=== PATIENT | male | born 1930 | race African-American/Black ===

== ENCOUNTER 2017-05-26 13:36 | Inpatient (IN) | payer MEDICARE ==
[~2017-05-26] VITALS: Ht 182.9 cm; Wt 64.4 kg
[~2017-05-26 13:36] MED LIST: ACET325T9 GT; ACET325T9 PO; AMLO10TA4 PO; ASPI-630 GT; ATOR10TA60 GT; ATOR10TA60 PO; CLOP75TA57 GT; CYAN10005 GT; DONE10TA61 PO; ERGO500027 PO; HYDR-2869 GT; LEVE500T56 GT; LORA10TA3 PO; LOSA50TA2 GT; MAGN2400 GT; METO25TA4 PO; PANT40GR PO; POTASSIUM CHLO10 MEQ PO; SERT25TA PO; VALS80TA3 PO; VERA240C2 PO
--- NOTE | 2017-05-26 15:04 | PHYS DOC ---
Past Medical History Past Medical History: Anxiety, CVA, Dementia, GERD, High Cholesterol, Hypertension, Renal Disease, Seizure, Other Additional Past Medical Histor: Aphasia, Vit B Def., Vit D Def., Chronic Kidney Ds, Psychosis Past Surgical History: Other Additional Past Surgical Histo: G-TUBE PLACEMENT X 2 WEEKS AGO Alcohol Use: None Drug Use: None Adult General Chief Complaint Chief Complaint: ABDOMINAL PAIN HPI HPI Patient is a 87 year old male who presents with and a history of abdominal distention and recently had a G-tube replaced; no vomiting or diarrhea reported. Patient is nonverbal after a stroke bed ridden without complaints and no response to abdominal palpation as far as pain goes. Patient is incontinent of urine at baseline uses diapers. History, review of systems, and physical exam are limited by patient's nonverbal status. Recent admission for hypernatremia failure to thrive and PEG tube placement [address] Almeida Review of Systems Review of Systems Constitutional: Denies fever or chills [] Eyes: Denies change in visual acuity, redness, or eye pain [] HENT: Denies nasal congestion or sore throat [] Respiratory: Denies cough or shortness of breath [] Cardiovascular: No additional information not addressed in HPI [] GI: Denies abdominal pain, nausea, vomiting, bloody stools or diarrhea [] : Denies dysuria or hematuria [] Musculoskeletal: Denies back pain or joint pain [] Integument: Denies rash or skin lesions [] Neurologic: Denies headache, focal weakness or sensory changes [] Endocrine: Denies polyuria or polydipsia [] All other systems were reviewed and found to be within normal limits, except as documented in this note. Current Medications Current Medications Current Medications Medications (Trade) Dose Ordered Sig/Kimo Start Time Stop Time Status Last Admin Dose Admin Iohexol (Omnipaque 300 Mg/ml) 75 ml 1X ONCE 05/26/17 15:15 05/26/17 15:17 DC 05/26/17 16:27 75 ML Morphine Sulfate 2 mg PRN Q2HR PRN 05/26/17 18:15 05/27/17 18:14 Ondansetron HCl (Zofran) 4 mg PRN Q8HRS PRN 05/26/17 18:15 05/27/17 18:14 Potassium Chloride (KCl Oral Soln) 40 meq 1X ONCE 05/26/17 17:30 05/26/17 17:31 DC 05/26/17 17:40 40 MEQ Sodium Chloride 1,000 ml @ 0 mls/hr 1X ONCE 05/26/17 18:45 05/26/17 18:46 DC 05/26/17 18:45 1,000 MLS/HR Allergies Allergies Allergies Coded Allergies Type Severity Reaction Last Updated Verified No Known Drug Allergies 06/25/15 No Physical Exam Physical Exam Constitutional: Well developed, well nourished, no acute distress, non-toxic appearance. [] HENT: Normocephalic, atraumatic, bilateral external ears normal, oropharynx moist, no oral exudates, nose normal. [] Eyes: PERRLA, EOMI, conjunctiva normal, no discharge. [] Neck: Normal range of motion, no tenderness, supple, no stridor. [] Cardiovascular:Heart rate regular rhythm, no murmur [] Lungs & Thorax: Bilateral breath sounds clear to auscultation [] Abdomen: Bowel sounds normal, soft, no tenderness, no masses, no pulsatile masses. marked distention[] Skin: Warm, dry, no erythema, no rash. [] Back: No tenderness, no CVA tenderness. [] Extremities: No tenderness, no cyanosis, no clubbing, ROM intact, no edema. [] Neurologic: Alert , no focal deficits noted. [] Psychologic: quiet in bed. [] Current Patient Data Vital Signs Vital Signs Date Time Temp Pulse Resp B/P (MAP) Pulse Ox O2 Delivery O2 Flow Rate FiO2 05/26/17 19:30 74 147/72 (97) 93 Room Air 05/26/17 13:48 98.0 18 98.0 Lab Values Laboratory Tests Test 05/26/17 15:00 05/26/17 15:20 Urine Collection Type Unknown Urine Color Yellow Urine Clarity Clear Urine pH 6.5 Urine Specific [place] 1.025 Urine Protein 30 mg/dL (NEG-TRACE) Urine Glucose (UA) Negative mg/dL (NEG) Urine Ketones (Stick) Negative mg/dL (NEG) Urine Blood Negative (NEG) Urine Nitrite Negative (NEG) Urine Bilirubin Negative (NEG) Urine Urobilinogen Dipstick 1.0 mg/dL (0.2 mg/dL) Urine Leukocyte Esterase Small (NEG) Urine RBC 0 /HPF (0-2) Urine WBC 5-10 /HPF (0-4) Urine Squamous Epithelial Cells Few /LPF Urine Bacteria Few /HPF (0-FEW) Urine Mucus Slight /LPF Urine Yeast Present /HPF White Blood Count 6.8 x10^3/uL (4.0-11.0) Red Blood Count 4.42 x10^6/uL (4.30-5.70) Hemoglobin 11.1 g/dL (13.0-17.5) L Hematocrit 35.5 % (39.0-53.0) L Mean Corpuscular Volume 80 fL (79-100) Mean Corpuscular Hemoglobin 25 pg (25-35) Mean Corpuscular Hemoglobin Concent 31 g/dL (31-37) Red Cell Distribution Width 18.0 % (11.5-14.5) H Platelet Count 223 x10^3/uL (140-400) Neutrophils (%) (Auto) 37 % (31-73) Lymphocytes (%) (Auto) 29 % (24-48) Monocytes (%) (Auto) 14 % (0-9) H Eosinophils (%) (Auto) 19 % (0-3) H Basophils (%) (Auto) 1 % (0-3) Neutrophils # (Auto) 2.5 x10^3uL (1.8-7.7) Lymphocytes # (Auto) 2.0 x10^3/uL (1.0-4.8) Monocytes # (Auto) 1.0 x10^3/uL (0.0-1.1) Eosinophils # (Auto) 1.3 x10^3/uL (0.0-0.7) H Basophils # (Auto) 0.1 x10^3/uL (0.0-0.2) Segmented Neutrophils % 42 % (35-66) Band Neutrophils % 1 % (0-9) Lymphocytes % 27 % (24-48) Monocytes % 11 % (0-10) H Eosinophils % 18 % (0-5) H Metamyelocytes % 1 % (0-0) H Platelet Estimate Adequate (ADEQUATE) Large Platelets Occ Polychromasia Slight Ovalocytes Occ Stomatocytes Occ Prothrombin Time 13.3 SEC (11.7-14.0) Prothrombin Time INR 1.1 (0.8-1.1) Sodium Level 146 mmol/L (136-145) H Potassium Level 2.6 mmol/L (3.5-5.1) *L Chloride Level 106 mmol/L (98-107) Carbon Dioxide Level 35 mmol/L (21-32) H Anion Gap 5 (6-14) L Blood Urea Nitrogen 13 mg/dL (8-26) Creatinine 0.8 mg/dL (0.7-1.3) Estimated GFR (Cockcroft-Gault) 110.4 BUN/Creatinine Ratio 16 (6-20) Glucose Level 93 mg/dL (70-99) Calcium Level 8.3 mg/dL (8.5-10.1) L Total Bilirubin 0.4 mg/dL (0.2-1.0) Aspartate Amino Transferase (AST) 19 U/L (15-37) Alanine Aminotransferase (ALT) 10 U/L (16-63) L Alkaline Phosphatase 54 U/L (46-116) Total Protein 6.6 g/dL (6.4-8.2) Albumin 2.1 g/dL (3.4-5.0) L Albumin/Globulin Ratio 0.5 (1.0-1.7) L Lipase 49 U/L (73-393) L Laboratory Tests 05/26/17 15:20 Laboratory Tests 05/26/17 15:20 EKG EKG [] Radiology/Procedures Radiology/Procedures CT scan abdomen and pelvis shows 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 (See chart for details) [Labs showed hypokalemia and we did order an enema. Discussed case with Dr. Almeida as the patient needs to be admitted for enemas and decompression of colon Discussed case with Dr. Almeida he agrees to admit the patient] Dragon Disclaimer Dragon Disclaimer This electronic medical record was generated, in whole or in part, using a voice recognition dictation system. Departure Departure Impression: Primary Impression: Cary's syndrome Additional Impressions: Hypokalemia Hypernatremia Disposition: ADMITTED INPATIENT Admitting Physician: Ann Almeida Condition: STABLE Referrals: ELI STALLINGS (PCP) Problem Qualifiers LAURA BLOCK MD May 26, 2017 15:04
[2017-05-26 15:11] LABS: BILIRUBIN,URINE NEGATIVE (NEG); GLUCOSE,URINE NEGATIVE (NEG); NITRITE,URINE NEGATIVE (NEG); PH,URINE 6.5; PROTEIN,URINE 30 mg/dL (NEG-TRACE)
[2017-05-26] MEDS ORDERED: IOHEXOL 300 MG/ML 100ML VIAL. IV ONE (15:15)
[2017-05-26 15:29] LABS: BASO # 0.1 x10^3/uL (0.0-0.2); BASO % 1 % (0-3); EOS % 19 % (0-3); HEMATOCRIT 35.5 % (39.0-53.0); HEMOGLOBIN 11.1 g/dL (13.0-17.5); LYMPH % 29 % (24-48); MEAN CORPUSCULAR HEMOGLOBIN 25 pg (25-35); MEAN CORPUSCULAR HGB CONC 31 g/dL (31-37); MEAN CORPUSCULAR VOLUME 80 fL (79-100); MONO % 14 % (0-9); NEUT % 37 % (31-73); PLATELET COUNT 223 x10^3/uL (140-400); RED BLOOD COUNT 4.42 x10^6/uL (4.30-5.70); WHITE BLOOD COUNT 6.8 x10^3/uL (4.0-11.0)
[2017-05-26 15:51] LABS: BACTERIA,URINE FEW /HPF (0-FEW); RBC,URINE 0 /HPF (0-2); SQUAMOUS EPITHELIAL CELL,UR FEW /LPF; YEAST,URINE PRESENT /HPF
[2017-05-26 15:55] LABS: ALBUMIN 2.1 g/dL (3.4-5.0); ALBUMIN/GLOBULIN RATIO 0.5 (1.0-1.7); CALCIUM 8.3 mg/dL (8.5-10.1); CREATININE 0.8 mg/dL (0.7-1.3); GFR 110.4; TOTAL BILIRUBIN 0.4 mg/dL (0.2-1.0); TOTAL PROTEIN 6.6 g/dL (6.4-8.2)
[2017-05-26 15:58] LABS: POTASSIUM 2.6 mmol/L (3.5-5.1)
[2017-05-26 16:09] LABS: INR 1.1 (0.8-1.1); PROTHROMBIN TIME PATIENT 13.3 SEC (11.7-14.0)
--- NOTE | 2017-05-26 16:58 | RAD ---
CT abdomen and pelvis with contrast 05/26/2017 Clinical indication: Diffuse abdominal distention. Comparison: Abdominal radiograph 04/17/2015 Technique: Multiple CT images of the abdomen and pelvis were obtained following the intravenous administration of 75 mL Omnipaque 300. PQRS Compliance Statement: One or more of the following individualized dose reduction techniques were utilized for this examination: 1. Automated exposure control 2. Adjustment of the mA and/or kV according to patient size 3. Use of iterative reconstruction technique Findings: Abdomen and pelvis: Examination of the upper abdomen is limited due to scan technique with adjacent artifact from hands being at the side. Heart size is normal without significant pericardial effusion. There are trace bilateral pleural effusions and patchy bibasilar consolidation. There is a punctate 3 mm hypodensity in hepatic segment 7 series 2/image 23 which is too small to definitely characterize. Gallbladder unremarkable. Spleen normal in size with punctate calcified granulomas. Adrenal glands and pancreas are grossly unremarkable. There are a few nonobstructive left renal calculi with the largest in the inferior pole the left kidney measuring 0.9 cm. There is a small inferior pole left renal cyst. No hydronephrosis. Abdominal aorta is normal in caliber with moderate aortoiliac calcified atheromatous disease. Major portal, splenic and visualized superior mesenteric veins are patent. There is an infrarenal IVC filter. There is a percutaneous gastrostomy tube in place. There is marked colonic distention diffusely throughout the large bowel to the level of the rectum with no high-grade transition point. Small bowel loops are normal in caliber. There is layering high density and fluid in the distal sigmoid colon and rectum, and may be due to recent enema. No pneumatosis or pneumoperitoneum. There are multifocal mild compression deformities from T12 through L3 no evidence of bony retropulsion. No destructive osseous lesions. Impression: 1. Marked prominent gaseous dilatation throughout the large bowel to the level of the rectum with no high-grade transition point. Findings are most suggestive of colonic ileus. Progress radiographs to completion are recommended. 2. No pneumatosis or pneumoperitoneum. 3. No small bowel obstruction. 4. Nonobstructive left nephrolithiasis. 5. Trace bilateral pleural effusions. 6. Patchy bibasilar consolidation which may represent aspiration or infection.
[2017-05-26] MEDS ORDERED: POTASSIUM CHLORIDE 20 MEQ/15 ML ORAL LIQUID. PEG ONE (17:30)
[2017-05-26 17:56] LABS: % EOS 18 % (0-5); PLT ESTIMATE ADEQUATE (ADEQUATE)
[2017-05-26 17:57] LABS: OVALOCYTES OCC; POLYCHROMASIA SLIGHT; STOMATOCYTES OCC
[2017-05-26] MEDS ORDERED: MORPHINE SULFATE 2 MG/ML DISP.SYRIN. IV PRN (18:15)
[2017-05-26] MEDS ORDERED: ONDANSETRON PF 4 MG/2 ML VIAL. IV PRN (18:15)
[2017-05-26] MEDS ORDERED: IV NORMAL SALINE 1000ML BAG 1,000 ML IV ONE (18:45)
[2017-05-26 21:00] VITALS: BP 165/85
[2017-05-26] MEDS ORDERED: CEFA1PIG IV (23:11)
[2017-05-26] MEDS ORDERED: LANSOPRAZOLE GT (23:11)
[2017-05-26] MEDS ORDERED: POTA20LI27 PEG (23:13)
[2017-05-26 23:38] VITALS: BP 141/70
[2017-05-27] VITALS (12 sets, daily range): BP systolic 124–153; BP diastolic 51–85
[2017-05-27 04:50] LABS: BASO # 0.1 x10^3/uL (0.0-0.2); BASO % 1 % (0-3); EOS % 18 % (0-3); HEMATOCRIT 30.7 % (39.0-53.0); HEMOGLOBIN 9.7 g/dL (13.0-17.5); LYMPH % 34 % (24-48); MEAN CORPUSCULAR HEMOGLOBIN 25 pg (25-35); MEAN CORPUSCULAR HGB CONC 32 g/dL (31-37); MEAN CORPUSCULAR VOLUME 80 fL (79-100); MONO % 14 % (0-9); NEUT % 33 % (31-73); PLATELET COUNT 211 x10^3/uL (140-400); RED BLOOD COUNT 3.84 x10^6/uL (4.30-5.70); RED CELL DISTRIBUTION WIDTH 17.9 % (11.5-14.5)
[2017-05-27 05:11] LABS: ALBUMIN 1.9 g/dL (3.4-5.0); ALBUMIN/GLOBULIN RATIO 0.5 (1.0-1.7); CREATININE 0.7 mg/dL (0.7-1.3); GFR 128.8; TOTAL BILIRUBIN 0.4 mg/dL (0.2-1.0)
[2017-05-27 05:12] LABS: POTASSIUM 2.4 mmol/L (3.5-5.1)
[2017-05-27] MEDS ORDERED: POTASSIUM CHLORIDE 20 MEQ/15 ML ORAL LIQUID. PEG ONE (06:00)
[2017-05-27] MEDS: DEXTROSE 5% IV SCH ×4 (06:03→13:20)
[2017-05-27] MEDS: POTASSIUM CHLORIDE IV SCH ×4 (06:03→13:20)
[2017-05-27] MEDS ORDERED: POTASSIUM CHLORIDE 10 MEQ in IV NORMAL SALINE 100ML 100 ML IV SCH (07:00)
[2017-05-27] MEDS ORDERED: PROPOFOL 20 ML IV ONE (09:32)
--- NOTE | 2017-05-27 09:38 | PDOC2 ---
GI CONSULT Reason For Consult: Recent PEG placement, now pseudo-obstruction HPI: HPI: 87 y/o male who we have recently seen; h/o CVA, aphasia, and dementia. Last admission w/ AMS and hypernatremia w/ abnormal swallow study, PEG was placed by Dr. Kaba on 05/14/17. (On EGD also noted erosive esophagitis, recommended chronic PPI.) On this admission brought to ER w/ abd distention. CT suggestive of colonic ileus. Enema ordered through ER, not sure if completed; however, RN on floor reports the patient is stooling. PMH: PMH: per chart - CVA, aphasia, dementia, dysphagia w/ PEG (x2), CKD, seizure, HTN, hypothyroidism, HLD, GERD, depression, anemia, PVD, CAD, OA, cataract extraction , IVC filter FH: Family History: No pertinent hx Social History: ALCOHOL: none Drugs: None ROS: Unobtainable. Vitals: Vitals: Vital Signs Date Time Temp Pulse Resp B/P (MAP) Pulse Ox O2 Delivery O2 Flow Rate FiO2 05/27/17 07:00 97.7 77 16 137/85 (102) 98 Room Air 97.7 Labs: Labs: Laboratory Tests Test 05/26/17 15:00 05/26/17 15:20 05/27/17 03:33 Urine Collection Type Unknown Urine Color Yellow Urine Clarity Clear Urine pH 6.5 Urine Specific [place] 1.025 Urine Protein 30 mg/dL (NEG-TRACE) Urine Glucose (UA) Negative mg/dL (NEG) Urine Ketones (Stick) Negative mg/dL (NEG) Urine Blood Negative (NEG) Urine Nitrite Negative (NEG) Urine Bilirubin Negative (NEG) Urine Urobilinogen Dipstick 1.0 mg/dL (0.2 mg/dL) Urine Leukocyte Esterase Small (NEG) Urine RBC 0 /HPF (0-2) Urine WBC 5-10 /HPF (0-4) Urine Squamous Epithelial Cells Few /LPF Urine Bacteria Few /HPF (0-FEW) Urine Mucus Slight /LPF Urine Yeast Present /HPF White Blood Count 6.8 x10^3/uL (4.0-11.0) 6.0 x10^3/uL (4.0-11.0) Red Blood Count 4.42 x10^6/uL (4.30-5.70) 3.84 x10^6/uL (4.30-5.70) Hemoglobin 11.1 g/dL (13.0-17.5) 9.7 g/dL (13.0-17.5) Hematocrit 35.5 % (39.0-53.0) 30.7 % (39.0-53.0) Mean Corpuscular Volume 80 fL (79-100) 80 fL (79-100) Mean Corpuscular Hemoglobin 25 pg (25-35) 25 pg (25-35) Mean Corpuscular Hemoglobin Concent 31 g/dL (31-37) 32 g/dL (31-37) Red Cell Distribution Width 18.0 % (11.5-14.5) 17.9 % (11.5-14.5) Platelet Count 223 x10^3/uL (140-400) 211 x10^3/uL (140-400) Neutrophils (%) (Auto) 37 % (31-73) 33 % (31-73) Lymphocytes (%) (Auto) 29 % (24-48) 34 % (24-48) Monocytes (%) (Auto) 14 % (0-9) 14 % (0-9) Eosinophils (%) (Auto) 19 % (0-3) 18 % (0-3) Basophils (%) (Auto) 1 % (0-3) 1 % (0-3) Neutrophils # (Auto) 2.5 x10^3uL (1.8-7.7) 2.0 x10^3uL (1.8-7.7) Lymphocytes # (Auto) 2.0 x10^3/uL (1.0-4.8) 2.0 x10^3/uL (1.0-4.8) Monocytes # (Auto) 1.0 x10^3/uL (0.0-1.1) 0.8 x10^3/uL (0.0-1.1) Eosinophils # (Auto) 1.3 x10^3/uL (0.0-0.7) 1.1 x10^3/uL (0.0-0.7) Basophils # (Auto) 0.1 x10^3/uL (0.0-0.2) 0.1 x10^3/uL (0.0-0.2) Segmented Neutrophils % 42 % (35-66) Band Neutrophils % 1 % (0-9) Lymphocytes % 27 % (24-48) Monocytes % 11 % (0-10) Eosinophils % 18 % (0-5) Metamyelocytes % 1 % (0-0) Platelet Estimate Adequate (ADEQUATE) Large Platelets Occ Polychromasia Slight Ovalocytes Occ Stomatocytes Occ Prothrombin Time 13.3 SEC (11.7-14.0) Prothromb Time International Ratio 1.1 (0.8-1.1) Sodium Level 146 mmol/L (136-145) 146 mmol/L (136-145) Potassium Level 2.6 mmol/L (3.5-5.1) 2.4 mmol/L (3.5-5.1) Chloride Level 106 mmol/L (98-107) 109 mmol/L (98-107) Carbon Dioxide Level 35 mmol/L (21-32) 33 mmol/L (21-32) Anion Gap 5 (6-14) 4 (6-14) Blood Urea Nitrogen 13 mg/dL (8-26) 13 mg/dL (8-26) Creatinine 0.8 mg/dL (0.7-1.3) 0.7 mg/dL (0.7-1.3) Estimated GFR (Cockcroft-Gault) 110.4 128.8 BUN/Creatinine Ratio 16 (6-20) 19 (6-20) Glucose Level 93 mg/dL (70-99) 83 mg/dL (70-99) Calcium Level 8.3 mg/dL (8.5-10.1) 8.0 mg/dL (8.5-10.1) Total Bilirubin 0.4 mg/dL (0.2-1.0) 0.4 mg/dL (0.2-1.0) Aspartate Amino Transf (AST/SGOT) 19 U/L (15-37) 19 U/L (15-37) Alanine Aminotransferase (ALT/SGPT) 10 U/L (16-63) 10 U/L (16-63) Alkaline Phosphatase 54 U/L (46-116) 50 U/L (46-116) Total Protein 6.6 g/dL (6.4-8.2) 6.0 g/dL (6.4-8.2) Albumin 2.1 g/dL (3.4-5.0) 1.9 g/dL (3.4-5.0) Albumin/Globulin Ratio 0.5 (1.0-1.7) 0.5 (1.0-1.7) Lipase 49 U/L (73-393) Allergies: Coded Allergies: No Known Drug Allergies (Unverified , 06/25/15) Medications: Current Medications Medications (Trade) Dose Ordered Sig/Kimo Route PRN Reason Start Time Stop Time Status Last Admin Dose Admin Iohexol (Omnipaque 300 Mg/ml) 75 ml 1X ONCE IV 05/26/17 15:15 05/26/17 15:17 DC 05/26/17 16:27 Potassium Chloride (KCl Oral Soln) 40 meq 1X ONCE PEG 05/26/17 17:30 05/26/17 17:31 DC 05/26/17 17:40 Sodium Chloride 1,000 ml @ 0 mls/hr 1X ONCE IV 05/26/17 18:45 05/26/17 18:46 DC 05/26/17 18:45 Potassium Chloride (KCl Oral Soln) 40 meq 1X ONCE PEG 05/27/17 06:00 05/27/17 06:01 DC 05/27/17 05:36 Potassium Chloride 10 meq/ Dextrose 155 ml @ 150 mls/hr Q1H2M IV 05/27/17 07:00 05/27/17 11:07 05/27/17 06:03 Imaging: Imaging: CT A/P w/ IV contrast Impression: 1. Marked prominent gaseous dilatation throughout the large bowel to the level of the rectum with no high-grade transition point. Findings are most suggestive of colonic ileus. Progress radiographs to completion are recommended. 2. No pneumatosis or pneumoperitoneum. 3. No small bowel obstruction. 4. Nonobstructive left nephrolithiasis. 5. Trace bilateral pleural effusions. 6. Patchy bibasilar consolidation which may represent aspiration or infection. PE: GEN: NAD HEENT: Atraumatic, PERRL LUNGS: CTAB HEART: RRR ABD: distended, fairly quiet w/ a few airy sounds, PEG in place w/ gauze taped below bumper EXTREMITY: No edema SKIN: No rashes, no jaundice NEURO/PSYCH: eyes open, non-verbal A/P: A/P: Abd distention, abnormal CT CVA, aphasia, dysphagia w/ PEG in place Hypokalemia -per primary -- Flex sig this morning w/ Dr. Kaba. JONAS PATEL May 27, 2017 09:38
--- NOTE | 2017-05-27 10:09 | PDOC ---
Provider Note Provider Note Pt seen.H&P dictated. #[id number] CHRISTIAN RAMIREZ MD May 27, 2017 10:09
--- NOTE | 2017-05-27 10:42 | PDOC4 ---
PROCEDURE Procedure Flexible sigmoidoscopy Indication: Colonic dilation on CT Meds; per anesthesia Findings: HAYDEE normal. Scope advanced into sigmoid; exact level unclear, but to fairly non-dilated bowel with stool present. Distal to this, dilated with some liquid stool. Decompressed as well as could. No real pathology encountered. No retroflex attempted. Abdomen softer after. Kandis. well. IMP: Apparent colonic ileus, distal (unusual). REC: Rectal tube No feeding yet. Follow clinically, with serial KUBs. Thanks. TIM SÁNCHEZ MD May 27, 2017 10:42
--- NOTE | 2017-05-27 10:53 | HP ---
ADMIT DATE: 05/26/2017 REASON FOR ADMISSION TO THE HOSPITAL: Abdominal distension, colon distention, possibly ileus versus obstruction. HISTORY OF PRESENT ILLNESS: The patient is an 87-year-old male patient, known to me. He is from the [facility] and he was recently discharged on 05/19/2017. At that time, he had dehydration and hypernatremia and had a feeding tube placed. He also had a staph bacteremia. It was decided to treat with 6 weeks of antibiotic Ancef. He tolerated the tube feedings well and the last couple of days, he was noticed to have gradual abdominal distention and got progressively worse and came to the Emergency Room. CT scan shows abdominal distention and colon distention up to the rectum. The patient was admitted to the hospital. His potassium was low at 2.4. He was given IV potassium. GI was consulted, scheduled for sigmoidoscopy this morning. PAST MEDICAL HISTORY: As mentioned above. He has a history of CVA, dementia, seizures, failure to thrive and staph bacteremia. PAST SURGICAL HISTORY: Recently, he had a PEG tube placed 10 days ago and he was tolerating that. He has had a cataract surgery removed. FAMILY HISTORY: Unremarkable. SOCIAL HISTORY: Lives at alf, wheelchair level of activity. ALLERGIES: No known drug allergies. MEDICATIONS: Metoprolol 25 mg twice a day, potassium 10 mEq 3 times daily, Keppra 500 mg twice a day, Lipitor 10 mg daily, aspirin 81 mg daily, Protonix 40 mg daily, Cozaar 50 mg daily, Plavix 75 mg daily, Zoloft 25 mg daily, Diovan 80 mg daily, Aricept 10 mg daily, milk of magnesia p.r.n., hydralazine 50 mg 3 times daily and B complex 1 daily. He is also getting Ancef 1 gram q.8h. and he has 3 more weeks to go and tube feedings at 60 mL per hour. REVIEW OF SYSTEMS: The patient has dementia, does not communicate. PHYSICAL EXAMINATION: GENERAL: On examination, the patient is not in any distress. VITAL SIGNS: At the time of admission show a temperature 98, pulse 75, respirations 18, blood pressure 149/75 and 95% on room air. HEENT: Head is atraumatic. Pupils are equal. Oral cavity, no teeth. NECK: Supple. CHEST: Symmetrical. CARDIOVASCULAR: S1, S2. LUNGS: Clear. ABDOMEN: Has distention, has a PEG tube, soft. Bowel sounds are very sluggish, nontender. EXTERNAL GENITALIA: No May, has briefs. RECTAL EXAMINATION: Deferred. EXTREMITIES: No calf tenderness, no edema. NEUROLOGIC: The patient does not follow commands. LABORATORY DATA: Shows white count 7, hemoglobin 11 and platelets 223,000. Electrolytes show sodium 146, potassium 2.6, chloride 106, bicarbonate 35, BUN 13 and creatinine 0.8. LFTs were normal. INR is 1.1. Urine was negative for infection. Abdominal and pelvic CT scan shows marked prominent gaseous distention of the large bowel to the level of the rectum. FINAL IMPRESSION: 1. Abdominal distention. 2. Colon distention, ileus versus obstruction. 3. Recent PEG tube placement 10 days ago. 4. Hypokalemia. 5. History of previous strokes. 6. History of seizures. 7. Dementia, Alzheimer's. 8. Failure to thrive. PLAN: Plan at this time was to admit to the hospital. IV fluids for hydration, potassium and IV supplements to correct it. GI was consulted and scheduled for a sigmoidoscopy. Decompression to see how he responds and hold off on tube feedings and see how he improves. I spoke with GI. CHRISTIAN RAMIREZ MD DR: MONTRELL/royce JOB#: [id number] / [id number]
[2017-05-27] MEDS: LANSOPRAZOLE 30 MG TAB.RAP.DR FT SCH (11:56)
[2017-05-27] MEDS: ceFAZolin SODIUM IV Push 1 GM VIAL. IVP SCH ×3 (11:57→22:37)
[2017-05-28 03:00] VITALS: BP 124/46
[2017-05-28 05:57] LABS: CALCIUM 7.7 mg/dL (8.5-10.1); CREATININE 0.8 mg/dL (0.7-1.3); GFR 110.4
[2017-05-28 06:04] LABS: POTASSIUM 2.3 mmol/L (3.5-5.1)
[2017-05-28] MEDS: ceFAZolin SODIUM IV Push 1 GM VIAL. IVP SCH ×3 (06:18→22:00)
[2017-05-28 07:00] VITALS: BP 144/71
--- NOTE | 2017-05-28 08:59 | RAD ---
Portable abdomen, 05/28/2017: History: Follow-up colonic distention Comparison is made to a study from 04/17/2015. A gastrostomy tube overlies the left upper quadrant. An inferior vena cava filter remains in place at the L2-3 level. There is a moderate amount of gas in large and small bowel. There is gaseous distention of the right colon which appears to have improved slightly since yesterday's CT study. There is gas and stool in the left colon. Scattered vascular calcifications are present. Moderate multilevel degenerative change is present in the spine with several mild lumbar vertebral compression deformities again noted. IMPRESSION: Gaseous distention of the right colon has improved since yesterday's CT study.
--- NOTE | 2017-05-28 09:41 | PDOC ---
PROGRESS NOTES Subjective Subjective sleepy ,no new complaints Objective Objective Vital Signs Date Time Temp Pulse Resp B/P (MAP) Pulse Ox O2 Delivery O2 Flow Rate FiO2 05/28/17 07:00 98.3 85 16 144/71 (95) 97 Room Air 98.3 05/27/17 10:35 3 Intake and Output 05/28/17 07:00 # Voids 7 # Bowel Movements 1 Physical Exam Abdomen: Normal bowel sounds, Soft, Other (peg tube present) Heart: Regular rate, Normal S1, Normal S2 Extremities: No edema General: No acute distress HEENT: Atraumatic Lungs: Clear to auscultation MUSCULOSKELETAL: No swelling, Other Neck: No JVD Skin: No rashes Diagnosis Problem List Problems Medical Problems: (1) Hypernatremia Status: Acute (2) Hypokalemia Status: Acute (3) Elisa's syndrome Status: Acute Assessment Assessment Problems Medical Problems: (1) Hypernatremia Status: Acute (2) Hypokalemia Status: Acute (3) Grover's syndrome Status: Acute FINAL IMPRESSION: 1. Abdominal distention. 2. Colon distention, ileus versus obstruction. 3. Recent PEG tube placement 10 days ago. 4. Hypokalemia. 5. History of previous strokes. 6. History of seizures. 7. Dementia, Alzheimer's. 8. Failure to thrive. PLAN: Sigmoidoscopy showed no obstruction ,only ileus. Findings: HAYDEE normal. Scope advanced into sigmoid; exact level unclear, but to fairly non-dilated bowel with stool present. Distal to this, dilated with some liquid stool. Decompressed as well as could. No real pathology encountered. No retroflex attempted. Abdomen softer after. low pot ,replace today 2.4. iv fluids , restart tube feedings today. Plan at this time was to admit to the hospital. IV fluids for hydration, potassium and IV supplements to correct it. GI was consulted and scheduled for a sigmoidoscopy. Decompression to see how he responds and hold off on tube feedings and see how he improves. I spoke with GI. Problems: Plan Plan of Care Problems Medical Problems: (1) Hypernatremia Status: Acute (2) Hypokalemia Status: Acute (3) Grover's syndrome Status: Acute Comment Review of Relevant I have reviewed the following items argelia (where applicable) has been applied. Labs Laboratory Tests Test 05/28/17 03:15 Sodium Level 146 mmol/L (136-145) Potassium Level 2.3 mmol/L (3.5-5.1) Chloride Level 108 mmol/L (98-107) Carbon Dioxide Level 31 mmol/L (21-32) Anion Gap 7 (6-14) Blood Urea Nitrogen 12 mg/dL (8-26) Creatinine 0.8 mg/dL (0.7-1.3) Estimated GFR (Cockcroft-Gault) 110.4 Glucose Level 74 mg/dL (70-99) Calcium Level 7.7 mg/dL (8.5-10.1) Microbiology 05/26/17 Urine Culture - Preliminary, Resulted 05/26/17 Urine Culture Result 1 (JERZY) - Preliminary, Resulted Medications Current Medications Cefazolin Sodium (Ancef) 1 gm Q8HRS IVP Last administered on 05/28/17t 06:18; Start 05/27/17 at 10:00 Lansoprazole (Prevacid) 30 mg DAILY FT Last administered on 05/27/17t 11:56; Start 05/27/17 at 10:00 Vitals/I & O Vital Sign - Last 24 Hours 05/27/17 05/27/17 05/27/17 05/27/17 10:12 10:15 10:35 10:48 Temp 98.1 97.4 98.1 97.4 Pulse 70 70 70 Resp 16 16 16 B/P (MAP) 125/62 132/68 Pulse Ox 100 99 100 O2 Delivery Room Air Nasal Cannula Room Air O2 Flow Rate 3 05/27/17 05/27/17 05/27/17 05/27/17 11:05 11:54 12:03 12:18 Pulse 63 67 59 63 Resp 16 18 18 18 B/P (MAP) 139/69 140/66 (90) 153/63 (93) 151/72 (98) Pulse Ox 98 96 93 97 O2 Delivery Room Air Room Air Room Air Room Air 05/27/17 05/27/17 05/27/17 05/27/17 12:33 12:48 13:18 13:48 Pulse 71 67 72 59 Resp 18 18 18 18 B/P (MAP) 150/66 (94) 139/71 (93) 151/67 (95) 137/71 (93) Pulse Ox 97 O2 Delivery Room Air 05/27/17 05/27/17 05/27/17 05/27/17 14:48 19:00 20:00 23:00 Temp 98.1 98.1 98.1 98.1 Pulse 75 77 52 Resp 18 18 18 B/P (MAP) 141/72 (95) 135/58 (83) 124/51 (75) Pulse Ox 95 94 95 O2 Delivery Room Air Room Air Room Air Room Air 05/28/17 05/28/17 03:00 07:00 Temp 99.3 98.3 99.3 98.3 Pulse 60 85 Resp 18 16 B/P (MAP) 124/46 (72) 144/71 (95) Pulse Ox 95 97 O2 Delivery Room Air Room Air CHRISTIAN RAMIREZ MD May 28, 2017 09:41
[2017-05-28] MEDS: LANSOPRAZOLE 30 MG TAB.RAP.DR FT SCH (10:15)
[2017-05-28] MEDS ORDERED: POTASSIUM CHLORIDE IV ONE (11:00)
[2017-05-28] MEDS ORDERED: DEXTROSE 5% IV ONE (11:00)
[2017-05-28 11:34] VITALS: BP 140/63
[2017-05-28 15:00] VITALS: BP 154/57
--- NOTE | 2017-05-28 15:15 | PDOC ---
Objective: Objective: Per RN - feels doesn't need rectal tube, only having "smears," has not started tube feeds yet. RN wonders if tube feed rate 75cc/hr is excessive. Vital Signs: Vital Signs Date Time Temp Pulse Resp B/P (MAP) Pulse Ox O2 Delivery O2 Flow Rate FiO2 05/28/17 11:34 98.8 62 18 140/63 (88) 94 Room Air 98.8 05/27/17 10:35 3 Labs: Laboratory Tests Test 05/28/17 03:15 Sodium Level 146 mmol/L Potassium Level 2.3 mmol/L Chloride Level 108 mmol/L Carbon Dioxide Level 31 mmol/L Anion Gap 7 Blood Urea Nitrogen 12 mg/dL Creatinine 0.8 mg/dL Estimated GFR (Cockcroft-Gault) 110.4 Glucose Level 74 mg/dL Calcium Level 7.7 mg/dL Imaging: FS 05/27/17 Findings: HAYDEE normal. Scope advanced into sigmoid; exact level unclear, but to fairly non-dilated bowel with stool present. Distal to this, dilated with some liquid stool. Decompressed as well as could. No real pathology encountered. No retroflex attempted. Abdomen softer after. IMP: Apparent colonic ileus, distal (unusual). KUB 05/28/17 IMPRESSION: Gaseous distention of the right colon has improved since yesterday' s CT study. PE: GEN: NAD LUNGS: clear HEART: RRR ABD: BS+, less distended, PEG in place NEURO/PSYCH: opens eyes A/P: Colonic ileus, s/p flex sig PEG in place -- Abd improved. Okay to start tube feeds. JONAS PATEL May 28, 2017 15:15
[2017-05-28 19:00] VITALS: BP 140/73
[2017-05-28 23:00] VITALS: BP 144/60
[2017-05-29] MEDS: NORMAL SALINE IV SCH ×2 (02:00→10:27)
[2017-05-29] MEDS: POTASSIUM CHLORIDE IV SCH ×2 (02:00→10:27)
[2017-05-29 03:00] VITALS: BP 138/66
[2017-05-29] MEDS: ceFAZolin SODIUM IV Push 1 GM VIAL. IVP SCH (05:39)
[2017-05-29 05:54] LABS: CALCIUM 8.4 mg/dL (8.5-10.1); CREATININE 0.7 mg/dL (0.7-1.3); GFR 128.8
[2017-05-29 06:06] LABS: POTASSIUM 2.8 mmol/L (3.5-5.1)
[2017-05-29 06:57] LABS: BASO # 0.1 x10^3/uL (0.0-0.2); BASO % 1 % (0-3); EOS % 5 % (0-3); HEMATOCRIT 31.9 % (39.0-53.0); HEMOGLOBIN 10.2 g/dL (13.0-17.5); LYMPH # 1.3 x10^3/uL (1.0-4.8); LYMPH % 12 % (24-48); MEAN CORPUSCULAR HEMOGLOBIN 26 pg (25-35); MEAN CORPUSCULAR HGB CONC 32 g/dL (31-37); MEAN CORPUSCULAR VOLUME 81 fL (79-100); MONO % 11 % (0-9); NEUT % 71 % (31-73); PLATELET COUNT 210 x10^3/uL (140-400); RED BLOOD COUNT 3.93 x10^6/uL (4.30-5.70); RED CELL DISTRIBUTION WIDTH 18.3 % (11.5-14.5); WHITE BLOOD COUNT 10.9 x10^3/uL (4.0-11.0)
[2017-05-29 07:00] VITALS: BP 133/61
[2017-05-29] MEDS: LANSOPRAZOLE 30 MG TAB.RAP.DR FT SCH (08:05)
--- NOTE | 2017-05-29 08:33 | RAD ---
Single view of the abdomen 05/29/2017 Indication: Colonic ileus. Comparison study: Abdominal radiograph, yesterday Discussion: Gastrostomy tube and a feeding attack IVC filter stable in appearance. There is persistent gaseous distention of the distal colon although this appears to be decreased since prior exam. No gross pneumoperitoneum is identified. No acute osseous changes are seen. Impression: Persistent but slightly decreased gaseous distention of the distal colon.
[2017-05-29] MEDS ORDERED: PIPERACILLIN/TAZOBACTAM 3.375 GM in IV DEXTROSE 5% 50 ML IV SCH (09:45)
--- NOTE | 2017-05-29 09:51 | PDOC ---
Infectious Disease Note Subjective Subjective Known to service see consult note 05/11 and last progress note 05/18 The patient is an 87-year-old male patient, known to our service. He is from the [facility] and he was recently discharged on 05/19/2017. He is being treated for MSSA bacteremia. It was decided to treat with 6 weeks of antibiotic Ancef. He was noticed to have gradual abdominal distention and got progressively worse and came to the Emergency Room. CT scan shows abdominal distention and colon distention up to the rectum. The patient was admitted to the hospital. He is nonverbal Previous notes reviewed ROS ROS Vital Sign Vital Signs Vital Signs Date Time Temp Pulse Resp B/P (MAP) Pulse Ox O2 Delivery O2 Flow Rate FiO2 05/29/17 07:00 99.6 69 18 133/61 (85) 94 Room Air 99.6 Physical Exam PHYSICAL EXAM GENERAL: NAD PERRL LUNGS: Clear HEART: S1S2 ABD: Mild distended, BS active, soft, No grimace or guarding to palpation, PEG intact : May EXT: No edema, no cyanosis TUMOR REGISTRAR: Opens eyes to voice, noncommunicative, no follow commands SKIN: No rash RUE-PICC. clean Labs Lab Laboratory Tests Test 05/29/17 03:22 White Blood Count 10.9 x10^3/uL (4.0-11.0) Red Blood Count 3.93 x10^6/uL (4.30-5.70) Hemoglobin 10.2 g/dL (13.0-17.5) Hematocrit 31.9 % (39.0-53.0) Mean Corpuscular Volume 81 fL (79-100) Mean Corpuscular Hemoglobin 26 pg (25-35) Mean Corpuscular Hemoglobin Concent 32 g/dL (31-37) Red Cell Distribution Width 18.3 % (11.5-14.5) Platelet Count 210 x10^3/uL (140-400) Neutrophils (%) (Auto) 71 % (31-73) Lymphocytes (%) (Auto) 12 % (24-48) Monocytes (%) (Auto) 11 % (0-9) Eosinophils (%) (Auto) 5 % (0-3) Basophils (%) (Auto) 1 % (0-3) Neutrophils # (Auto) 7.7 x10^3uL (1.8-7.7) Lymphocytes # (Auto) 1.3 x10^3/uL (1.0-4.8) Monocytes # (Auto) 1.3 x10^3/uL (0.0-1.1) Eosinophils # (Auto) 0.6 x10^3/uL (0.0-0.7) Basophils # (Auto) 0.1 x10^3/uL (0.0-0.2) Sodium Level 142 mmol/L (136-145) Potassium Level 2.8 mmol/L (3.5-5.1) Chloride Level 105 mmol/L (98-107) Carbon Dioxide Level 28 mmol/L (21-32) Anion Gap 9 (6-14) Blood Urea Nitrogen 11 mg/dL (8-26) Creatinine 0.7 mg/dL (0.7-1.3) Estimated GFR (Cockcroft-Gault) 128.8 Glucose Level 124 mg/dL (70-99) Calcium Level 8.4 mg/dL (8.5-10.1) Objective Assessment Fever - ? PICC line in place vs Ileus vs abd source etc. Ileus S/p sigmoidoscopy 05/27 MSSA bacteremia, POA 05/08. Repeat BC NGTD 05/11 on Cefazolin Dementia Seizure disorder Dysphagia s/p PEG placement, 05/14 Plan Plan of Care Check influenza Blood cults Change to zosyn/Vanc/Fluconazole F/u labs in am KARLA DAWSON MD May 29, 2017 09:51
[2017-05-29] MEDS ORDERED: VANCOMYCIN 1.5 GM in IV DEXTROSE 5% 500 ML IV ONE (10:00)
[2017-05-29] MEDS: FLUCONAZOLE 200MG/100ML PREMIX 100 ML IV SCH (10:28)
[2017-05-29] MEDS: PIPERACILLIN/TAZO IV Push 3.375 GM VIAL. IVP SCH ×2 (10:28→18:26)
--- NOTE | 2017-05-29 10:31 | PDOC ---
Objective: Objective: 2 stools charted. Vital Signs: Vital Signs Date Time Temp Pulse Resp B/P (MAP) Pulse Ox O2 Delivery O2 Flow Rate FiO2 05/29/17 07:30 Room Air 05/29/17 07:00 99.6 69 18 133/61 (85) 94 99.6 Labs: Laboratory Tests Test 05/29/17 03:22 White Blood Count 10.9 x10^3/uL Red Blood Count 3.93 x10^6/uL Hemoglobin 10.2 g/dL Hematocrit 31.9 % Mean Corpuscular Volume 81 fL Mean Corpuscular Hemoglobin 26 pg Mean Corpuscular Hemoglobin Concent 32 g/dL Red Cell Distribution Width 18.3 % Platelet Count 210 x10^3/uL Neutrophils (%) (Auto) 71 % Lymphocytes (%) (Auto) 12 % Monocytes (%) (Auto) 11 % Eosinophils (%) (Auto) 5 % Basophils (%) (Auto) 1 % Neutrophils # (Auto) 7.7 x10^3uL Lymphocytes # (Auto) 1.3 x10^3/uL Monocytes # (Auto) 1.3 x10^3/uL Eosinophils # (Auto) 0.6 x10^3/uL Basophils # (Auto) 0.1 x10^3/uL Sodium Level 142 mmol/L Potassium Level 2.8 mmol/L Chloride Level 105 mmol/L Carbon Dioxide Level 28 mmol/L Anion Gap 9 Blood Urea Nitrogen 11 mg/dL Creatinine 0.7 mg/dL Estimated GFR (Cockcroft-Gault) 128.8 Glucose Level 124 mg/dL Calcium Level 8.4 mg/dL Imaging: KUB Impression: Persistent but slightly decreased gaseous distention of the distal colon. PE: GEN: NAD LUNGS: clear HEART: RRR ABD: less distended, soft, BS+, PEG feeds running NEURO/PSYCH: eyes closed A/P: Colonic ileus s/p flex sig PEG in place Fever, bacteremia Hypokalemia -per primary -- Seems improved GI-arauz. JONAS PATEL May 29, 2017 10:31
--- NOTE | 2017-05-29 10:33 | PDOC ---
PROGRESS NOTES Subjective Subjective had fever yesterday 101 Objective Objective Vital Signs Date Time Temp Pulse Resp B/P (MAP) Pulse Ox O2 Delivery O2 Flow Rate FiO2 05/29/17 07:30 Room Air 05/29/17 07:00 99.6 69 18 133/61 (85) 94 99.6 Intake and Output 05/29/17 07:00 Intake Total 1044 ml Balance 1044 ml IV Total 786 ml Tube Feeding 258 ml # Voids 3 # Bowel Movements 2 Physical Exam Abdomen: Normal bowel sounds, Soft, Other (peg tube present) Heart: Regular rate, Normal S1, Normal S2 Extremities: No edema General: No acute distress HEENT: Atraumatic Lungs: Clear to auscultation MUSCULOSKELETAL: No swelling, Other Neck: No JVD Skin: No rashes COMMENT picc line rt arm Diagnosis Problem List Problems Medical Problems: (1) Hypernatremia Status: Acute (2) Hypokalemia Status: Acute (3) Cushing's syndrome Status: Acute Assessment Assessment Problems Medical Problems: (1) Hypernatremia Status: Acute (2) Hypokalemia Status: Acute (3) Elisa's syndrome Status: Acute FINAL IMPRESSION: Fever 1. Abdominal distention due to ileus. 2. Colon distention, ileus versus obstruction. 3. Recent PEG tube placement 10 days ago. 4. Hypokalemia. 5. History of previous strokes. 6. History of seizures. 7. Dementia, Alzheimer's. 8. Failure to thrive. PLAN: ID consult , on 3 antibiotics after c/s done. tolerating tube fe at 30 cc/hr . Low pot 2.8 ,repalce with IV Sigmoidoscopy showed no obstruction ,only ileus.Decompression done Findings: HAYDEE normal. Scope advanced into sigmoid; exact level unclear, but to fairly non-dilated bowel with stool present. Distal to this, dilated with some liquid stool. Decompressed as well as could. No real pathology encountered. No retroflex attempted. Abdomen softer after. Problems: Plan Plan of Care Problems Medical Problems: (1) Hypernatremia Status: Acute (2) Hypokalemia Status: Acute (3) Cushing's syndrome Status: Acute Comment Review of Relevant I have reviewed the following items argelia (where applicable) has been applied. Labs Laboratory Tests Test 05/29/17 03:22 White Blood Count 10.9 x10^3/uL (4.0-11.0) Red Blood Count 3.93 x10^6/uL (4.30-5.70) Hemoglobin 10.2 g/dL (13.0-17.5) Hematocrit 31.9 % (39.0-53.0) Mean Corpuscular Volume 81 fL (79-100) Mean Corpuscular Hemoglobin 26 pg (25-35) Mean Corpuscular Hemoglobin Concent 32 g/dL (31-37) Red Cell Distribution Width 18.3 % (11.5-14.5) Platelet Count 210 x10^3/uL (140-400) Neutrophils (%) (Auto) 71 % (31-73) Lymphocytes (%) (Auto) 12 % (24-48) Monocytes (%) (Auto) 11 % (0-9) Eosinophils (%) (Auto) 5 % (0-3) Basophils (%) (Auto) 1 % (0-3) Neutrophils # (Auto) 7.7 x10^3uL (1.8-7.7) Lymphocytes # (Auto) 1.3 x10^3/uL (1.0-4.8) Monocytes # (Auto) 1.3 x10^3/uL (0.0-1.1) Eosinophils # (Auto) 0.6 x10^3/uL (0.0-0.7) Basophils # (Auto) 0.1 x10^3/uL (0.0-0.2) Sodium Level 142 mmol/L (136-145) Potassium Level 2.8 mmol/L (3.5-5.1) Chloride Level 105 mmol/L (98-107) Carbon Dioxide Level 28 mmol/L (21-32) Anion Gap 9 (6-14) Blood Urea Nitrogen 11 mg/dL (8-26) Creatinine 0.7 mg/dL (0.7-1.3) Estimated GFR (Cockcroft-Gault) 128.8 Glucose Level 124 mg/dL (70-99) Calcium Level 8.4 mg/dL (8.5-10.1) Microbiology 05/26/17 Urine Culture - Final, Complete 05/26/17 Urine Culture Result 1 (JERZY) - Final, Complete Medications Current Medications Fluconazole/ Sodium Chloride 100 ml @ 100 mls/hr Q24H IV Last administered on 05/29/17 10:28; Start 05/29/17 at 10:00 Metronidazole 100 ml @ 100 mls/hr Q12HR IV ; Start 05/29/17 at 09:15; Stop at 09:45; Status DC Piperacillin Sod/ Tazobactam Sod (Zosyn) 3.375 gm Q6HRS IVP Last administered on 05/29/17 10:28; Start 05/29/17 at 10:00 Piperacillin Sod/ Tazobactam Sod 3.375 gm/Dextrose 50 ml @ 100 mls/hr Q6HRS IV ; Start 05/29/17 at 09:45; Stop 05/29/17 at 09:58; Status DC Potassium Chloride 60 meq/ Dextrose 1,030 ml @ 75 mls/hr 1X ONCE IV Last administered on 05/28/17 10:45; Start 05/28/17 at 11:00; Stop 05/29/17 at 00 :43; Status DC Potassium Chloride 60 meq/ Sodium Chloride 1,030 ml @ 85 mls/hr Q12H8M IV Last administered on 05/29/17 10:27; Start 05/29/17 at 08:30 Vancomycin HCl (Vanco Per Pharmacy) 1 each PRN DAILY PRN MC SEE COMMENTS; Start 05/29/17 at 09:45 Vancomycin HCl 1.5 gm/Dextrose 500 ml @ 250 mls/hr 1X ONCE IV Last administered on 05/29/17 10:27; Start 05/29/17 at 10:00; Stop 05/29/17 at 11 :59 Vitals/I & O Vital Sign - Last 24 Hours 05/28/17 05/28/17 05/28/17 05/28/17 11:34 15:00 19:00 20:00 Temp 98.8 98.8 100.8 98.8 98.8 100.8 Pulse 62 52 79 Resp 18 18 18 B/P (MAP) 140/63 (88) 154/57 (89) 140/73 (95) Pulse Ox 94 95 96 O2 Delivery Room Air Room Air Room Air Room Air 05/28/17 05/29/17 05/29/17 05/29/17 23:00 03:00 07:00 07:30 Temp 101.5 99.2 99.6 101.5 99.2 99.6 Pulse 83 71 69 Resp 18 18 18 B/P (MAP) 144/60 (88) 138/66 (90) 133/61 (85) Pulse Ox 93 95 94 O2 Delivery Room Air Room Air Room Air Room Air Intake and Output 05/28/17 05/28/17 05/29/17 15:00 23:00 07:00 Intake Total 1044 ml Balance 1044 ml Nutrition Consultation Dietary Evaluation: Comments: TF for total nutrition Expected Outcomes/Goals: to tolerate Tf at goal Malnutrition Findings: Weight Status: Appropriate CHRISTIAN RAMIREZ MD May 29, 2017 10:33
--- NOTE | 2017-05-29 10:42 | RAD ---
Single view of the Chest 05/29/2017 11:06 AM Indication: fever r/o pneumonia Comparison: Chest radiograph May 11, 2017 Findings: No new focal consolidation or infiltrate is identified. Heart size is mildly enlarged, likely related to portable technique. No pneumothorax or pleural effusion is seen. Diffuse interstitial coarsening appears to be chronic. Right upper extremity midline noted. No acute osseous changes are identified. Impression: No evidence of acute cardiopulmonary process or change from prior exam
[2017-05-29 11:00] VITALS: BP 146/66
[2017-05-29 11:55] LABS: OBC FLU VALID
[2017-05-29] MEDS: VANCOMYCIN PER PHARMACY MC PRN (13:47)
[2017-05-29 15:00] VITALS: BP 142/77
[2017-05-29 19:00] VITALS: BP 171/82
[2017-05-29 23:00] VITALS: BP 162/72
[2017-05-30] MEDS: POTASSIUM CHLORIDE IV SCH ×2 (02:00→18:54)
[2017-05-30] MEDS: NORMAL SALINE IV SCH ×2 (02:00→18:54)
[2017-05-30 03:00] VITALS: BP 166/74
[2017-05-30 04:56] LABS: BASO % 0 % (0-3); EOS % 9 % (0-3); HEMATOCRIT 30.1 % (39.0-53.0); HEMOGLOBIN 9.5 g/dL (13.0-17.5); LYMPH # 1.7 x10^3/uL (1.0-4.8); LYMPH % 20 % (24-48); MEAN CORPUSCULAR HEMOGLOBIN 25 pg (25-35); MEAN CORPUSCULAR HGB CONC 32 g/dL (31-37); MEAN CORPUSCULAR VOLUME 80 fL (79-100); MONO % 12 % (0-9); NEUT % 60 % (31-73); PLATELET COUNT 178 x10^3/uL (140-400); RED BLOOD COUNT 3.76 x10^6/uL (4.30-5.70); RED CELL DISTRIBUTION WIDTH 18.4 % (11.5-14.5); WHITE BLOOD COUNT 8.7 x10^3/uL (4.0-11.0)
[2017-05-30 05:19] LABS: CREATININE 0.8 mg/dL (0.7-1.3); GFR 110.4
[2017-05-30 05:24] LABS: POTASSIUM 2.7 mmol/L (3.5-5.1)
[2017-05-30] MEDS: PIPERACILLIN/TAZO IV Push 3.375 GM VIAL. IVP SCH ×4 (06:28→17:45)
[2017-05-30 07:00] VITALS: BP 139/75
[2017-05-30] MEDS: LANSOPRAZOLE 30 MG TAB.RAP.DR FT SCH (10:52)
[2017-05-30] MEDS: FLUCONAZOLE 200MG/100ML PREMIX 100 ML IV SCH (10:55)
[2017-05-30 11:00] VITALS: BP 167/78
--- NOTE | 2017-05-30 12:15 | PDOC ---
PROGRESS NOTES Subjective Subjective non verbal ,no fever Objective Objective Vital Signs Date Time Temp Pulse Resp B/P (MAP) Pulse Ox O2 Delivery O2 Flow Rate FiO2 05/30/17 07:00 99.1 84 18 139/75 (96) 96 Room Air 99.1 05/29/17 20:00 3.0 Intake and Output 05/30/17 07:00 Intake Total 1630 ml Balance 1630 ml IV Total 1030 ml Tube Feeding 600 ml # Voids 6 # Bowel Movements 6 Physical Exam Abdomen: Normal bowel sounds, Soft, Other (peg tube present) Heart: Regular rate, Normal S1, Normal S2 Extremities: No edema General: No acute distress HEENT: Atraumatic Lungs: Clear to auscultation MUSCULOSKELETAL: No swelling, Other Neck: No JVD Skin: No rashes COMMENT picc line rt arm Diagnosis Problem List Problems Medical Problems: (1) Hypernatremia Status: Acute (2) Hypokalemia Status: Acute (3) Arlington's syndrome Status: Acute Assessment Assessment Problems Medical Problems: (1) Hypernatremia Status: Acute (2) Hypokalemia Status: Acute (3) Arlington's syndrome Status: Acute FINAL IMPRESSION: Fever resolved 1. Abdominal distention due to ileus. 2. Colon distention, ileus versus obstruction. 3. Recent PEG tube placement 10 days ago. 4. Hypokalemia. 5. History of previous strokes. 6. History of seizures. 7. Dementia, Alzheimer's. 8. Failure to thrive. PLAN:tolerating tube feedings at 60 cc /hr ID consult , on 3 antibiotics after c/s done. tolerating tube fe at 30 cc/hr . Low pot 2.7 ,repalce with IV. start on pot 20 meq tid ,peg tube Sigmoidoscopy showed no obstruction ,only ileus.Decompression done/ c/s neg so far, fevers down Problems: Plan Plan of Care Problems Medical Problems: (1) Hypernatremia Status: Acute (2) Hypokalemia Status: Acute (3) Arlington's syndrome Status: Acute Comment Review of Relevant I have reviewed the following items argelia (where applicable) has been applied. Labs Laboratory Tests Test 05/30/17 04:35 White Blood Count 8.7 x10^3/uL (4.0-11.0) Red Blood Count 3.76 x10^6/uL (4.30-5.70) Hemoglobin 9.5 g/dL (13.0-17.5) Hematocrit 30.1 % (39.0-53.0) Mean Corpuscular Volume 80 fL (79-100) Mean Corpuscular Hemoglobin 25 pg (25-35) Mean Corpuscular Hemoglobin Concent 32 g/dL (31-37) Red Cell Distribution Width 18.4 % (11.5-14.5) Platelet Count 178 x10^3/uL (140-400) Neutrophils (%) (Auto) 60 % (31-73) Lymphocytes (%) (Auto) 20 % (24-48) Monocytes (%) (Auto) 12 % (0-9) Eosinophils (%) (Auto) 9 % (0-3) Basophils (%) (Auto) 0 % (0-3) Neutrophils # (Auto) 5.2 x10^3uL (1.8-7.7) Lymphocytes # (Auto) 1.7 x10^3/uL (1.0-4.8) Monocytes # (Auto) 1.0 x10^3/uL (0.0-1.1) Eosinophils # (Auto) 0.7 x10^3/uL (0.0-0.7) Basophils # (Auto) 0.0 x10^3/uL (0.0-0.2) Sodium Level 144 mmol/L (136-145) Potassium Level 2.7 mmol/L (3.5-5.1) Chloride Level 109 mmol/L (98-107) Carbon Dioxide Level 30 mmol/L (21-32) Anion Gap 5 (6-14) Blood Urea Nitrogen 10 mg/dL (8-26) Creatinine 0.8 mg/dL (0.7-1.3) Estimated GFR (Cockcroft-Gault) 110.4 Glucose Level 127 mg/dL (70-99) Calcium Level 8.0 mg/dL (8.5-10.1) Microbiology 05/29/17 Blood Culture - Preliminary, Resulted NO GROWTH AFTER 1 DAY 05/26/17 Urine Culture - Final, Complete 05/26/17 Urine Culture Result 1 (JERZY) - Final, Complete Medications Current Medications Potassium Chloride (KCl Oral Soln) 20 meq TIDWMEALS PEG ; Start 05/30/17 at 12: 00 Vancomycin HCl 1 each 1X ONCE MC ; Start 05/31/17 at 10:00; Stop 05/31/17 at 10:01 Vancomycin HCl 1 gm/Dextrose 250 ml @ 250 mls/hr Q24H IV ; Start 05/30/17 at 10:30 Vitals/I & O Vital Sign - Last 24 Hours 05/29/17 05/29/17 05/29/17 05/29/17 15:00 19:00 20:00 23:00 Temp 98.7 98.8 98.4 98.7 98.8 98.4 Pulse 76 70 75 Resp 18 18 18 B/P (MAP) 142/77 (98) 171/82 (111) 162/72 (102) Pulse Ox 97 96 95 O2 Delivery Room Air Room Air Room Air Room Air O2 Flow Rate 3.0 05/30/17 05/30/17 03:00 07:00 Temp 98.3 99.1 98.3 99.1 Pulse 78 84 Resp 18 18 B/P (MAP) 166/74 (104) 139/75 (96) Pulse Ox 95 96 O2 Delivery Room Air Room Air Intake and Output 05/29/17 05/29/17 05/30/17 15:00 23:00 07:00 Intake Total 1630 ml Balance 1630 ml Nutrition Consultation Dietary Evaluation: Comments: TF for total nutrition Expected Outcomes/Goals: to tolerate Tf at goal Malnutrition Findings: Weight Status: Appropriate CHRISTIAN RAMIREZ MD May 30, 2017 12:15
[2017-05-30] MEDS: POTASSIUM CHLORIDE 20 MEQ/15 ML ORAL LIQUID. PEG SCH ×2 (12:28→17:44)
[2017-05-30] MEDS: VANCOMYCIN 1 GM in IV DEXTROSE 5% 250 ML IV SCH (12:28)
[2017-05-30] MEDS: VANCOMYCIN PER PHARMACY MC PRN (13:08)
--- NOTE | 2017-05-30 13:42 | PDOC ---
Infectious Disease Note Subjective Subjective Nonverbal Fever 100.2 Tube feedings several BMs ROS ROS Unobtainable Vital Sign Vital Signs Vital Signs Date Time Temp Pulse Resp B/P (MAP) Pulse Ox O2 Delivery O2 Flow Rate FiO2 05/30/17 11:00 100.2 79 22 167/78 (107) 98 Room Air 100.2 05/29/17 20:00 3.0 Physical Exam PHYSICAL EXAM GENERAL: Resting quietly LUNGS: Clear HEART: S1S2, no murmur appreciated ABD: Distended, soft, tensed up some with palpation; PEG EXT: No edema, no cyanosis MORTGAGE LENDER: Opens eyes to voice, nonverbal, no follow commands SKIN: No rash RUE-PICC. clean Labs Lab Laboratory Tests Test 05/30/17 04:35 White Blood Count 8.7 x10^3/uL (4.0-11.0) Red Blood Count 3.76 x10^6/uL (4.30-5.70) Hemoglobin 9.5 g/dL (13.0-17.5) Hematocrit 30.1 % (39.0-53.0) Mean Corpuscular Volume 80 fL (79-100) Mean Corpuscular Hemoglobin 25 pg (25-35) Mean Corpuscular Hemoglobin Concent 32 g/dL (31-37) Red Cell Distribution Width 18.4 % (11.5-14.5) Platelet Count 178 x10^3/uL (140-400) Neutrophils (%) (Auto) 60 % (31-73) Lymphocytes (%) (Auto) 20 % (24-48) Monocytes (%) (Auto) 12 % (0-9) Eosinophils (%) (Auto) 9 % (0-3) Basophils (%) (Auto) 0 % (0-3) Neutrophils # (Auto) 5.2 x10^3uL (1.8-7.7) Lymphocytes # (Auto) 1.7 x10^3/uL (1.0-4.8) Monocytes # (Auto) 1.0 x10^3/uL (0.0-1.1) Eosinophils # (Auto) 0.7 x10^3/uL (0.0-0.7) Basophils # (Auto) 0.0 x10^3/uL (0.0-0.2) Sodium Level 144 mmol/L (136-145) Potassium Level 2.7 mmol/L (3.5-5.1) Chloride Level 109 mmol/L (98-107) Carbon Dioxide Level 30 mmol/L (21-32) Anion Gap 5 (6-14) Blood Urea Nitrogen 10 mg/dL (8-26) Creatinine 0.8 mg/dL (0.7-1.3) Estimated GFR (Cockcroft-Gault) 110.4 Glucose Level 127 mg/dL (70-99) Calcium Level 8.0 mg/dL (8.5-10.1) CXR Impression: No evidence of acute cardiopulmonary process or change from prior exam Micro BLOOD CULTURE Preliminary NO GROWTH AFTER 1 DAY URINE CULTURE RES 1 Final Comment Culture shows less than 10,000 colony forming units of bacteria per milliliter of urine. This colony count is not generally considered to be clinically significant. Objective Assessment Fever - ? PICC line in place vs Ileus vs abd source etc. influenza screen negative Ileus S/p sigmoidoscopy 05/27 MSSA bacteremia, POA 05/08. Repeat BC NGTD 05/11 on Cefazolin Dementia Seizure disorder Dysphagia s/p PEG placement, 05/14 Plan Plan of Care vanc, Zosyn and po fluconazole Blood cults NGTD F/u labs in am Supportive care TORIBIO LAUGHLIN APRN May 30, 2017 13:42
[2017-05-30] MEDS: LOSARTAN POTASSIUM 25 MG TABLET. PO SCH (14:26)
[2017-05-30] MEDS: SPIRONOLACTONE 25 MG TABLET PO SCH (14:26)
[2017-05-30 15:02] VITALS: BP 153/62
[2017-05-30 19:00] VITALS: BP 154/80
[2017-05-30 23:00] VITALS: BP 124/61
[2017-05-31] MEDS: PIPERACILLIN/TAZO IV Push 3.375 GM VIAL. IVP SCH ×4 (01:23→19:28)
[2017-05-31] MEDS: NORMAL SALINE IV SCH (07:20)
[2017-05-31] MEDS: POTASSIUM CHLORIDE IV SCH (07:20)
[2017-05-31 07:40] VITALS: BP 166/76
[2017-05-31] MEDS: SPIRONOLACTONE 25 MG TABLET PO SCH (10:00)
[2017-05-31] MEDS: FLUCONAZOLE 200MG/100ML PREMIX 100 ML IV SCH (10:00)
[2017-05-31] MEDS: LANSOPRAZOLE 30 MG TAB.RAP.DR FT SCH (10:01)
[2017-05-31] MEDS: POTASSIUM CHLORIDE 20 MEQ/15 ML ORAL LIQUID. PEG SCH ×3 (10:01→19:27)
[2017-05-31] MEDS: LOSARTAN POTASSIUM 25 MG TABLET. PO SCH (10:02)
[2017-05-31 10:22] LABS: CALCIUM 7.5 mg/dL (8.5-10.1); CREATININE 0.7 mg/dL (0.7-1.3); GFR 128.8; POTASSIUM 3.5 mmol/L (3.5-5.1)
[2017-05-31 10:25] LABS: BASO % 1 % (0-3); EOS % 12 % (0-3); HEMATOCRIT 29.9 % (39.0-53.0); HEMOGLOBIN 9.4 g/dL (13.0-17.5); LYMPH % 34 % (24-48); MEAN CORPUSCULAR HEMOGLOBIN 26 pg (25-35); MEAN CORPUSCULAR HGB CONC 32 g/dL (31-37); MEAN CORPUSCULAR VOLUME 81 fL (79-100); MONO % 15 % (0-9); NEUT % 38 % (31-73); PLATELET COUNT 164 x10^3/uL (140-400); RED BLOOD COUNT 3.67 x10^6/uL (4.30-5.70); RED CELL DISTRIBUTION WIDTH 18.8 % (11.5-14.5); WHITE BLOOD COUNT 5.8 x10^3/uL (4.0-11.0)
[2017-05-31] MEDS: VANCOMYCIN 1 GM in IV DEXTROSE 5% 250 ML IV SCH ×2 (10:30→13:00)
[2017-05-31 11:00] VITALS: BP 170/76
[2017-05-31] MEDS: VANCOMYCIN PER PHARMACY MC PRN ×2 (12:11→12:28)
--- NOTE | 2017-05-31 14:26 | PDOC ---
Infectious Disease Note Subjective Subjective Nonverbal No fever last 24 hours Tube feedings ROS ROS unobtainable Vital Sign Vital Signs Vital Signs Date Time Temp Pulse Resp B/P (MAP) Pulse Ox O2 Delivery O2 Flow Rate FiO2 05/31/17 11:00 97.9 66 18 170/76 (107) 98 Room Air 97.9 Physical Exam PHYSICAL EXAM GENERAL: Resting quietly, pulling blanket over himself LUNGS: Clear HEART: S1S2, no murmur appreciated ABD: Distended, soft; PEG EXT: No edema, no cyanosis LEAD COATER: Awake, no eye contact, nonverbal, no follow commands SKIN: No rash RUE-PICC. clean Labs Lab Laboratory Tests Test 05/31/17 10:00 White Blood Count 5.8 x10^3/uL (4.0-11.0) Red Blood Count 3.67 x10^6/uL (4.30-5.70) Hemoglobin 9.4 g/dL (13.0-17.5) Hematocrit 29.9 % (39.0-53.0) Mean Corpuscular Volume 81 fL (79-100) Mean Corpuscular Hemoglobin 26 pg (25-35) Mean Corpuscular Hemoglobin Concent 32 g/dL (31-37) Red Cell Distribution Width 18.8 % (11.5-14.5) Platelet Count 164 x10^3/uL (140-400) Neutrophils (%) (Auto) 38 % (31-73) Lymphocytes (%) (Auto) 34 % (24-48) Monocytes (%) (Auto) 15 % (0-9) Eosinophils (%) (Auto) 12 % (0-3) Basophils (%) (Auto) 1 % (0-3) Neutrophils # (Auto) 2.2 x10^3uL (1.8-7.7) Lymphocytes # (Auto) 2.0 x10^3/uL (1.0-4.8) Monocytes # (Auto) 0.9 x10^3/uL (0.0-1.1) Eosinophils # (Auto) 0.7 x10^3/uL (0.0-0.7) Basophils # (Auto) 0.0 x10^3/uL (0.0-0.2) Sodium Level 144 mmol/L (136-145) Potassium Level 3.5 mmol/L (3.5-5.1) Chloride Level 111 mmol/L (98-107) Carbon Dioxide Level 29 mmol/L (21-32) Anion Gap 4 (6-14) Blood Urea Nitrogen 9 mg/dL (8-26) Creatinine 0.7 mg/dL (0.7-1.3) Estimated GFR (Cockcroft-Gault) 128.8 Glucose Level 119 mg/dL (70-99) Calcium Level 7.5 mg/dL (8.5-10.1) Vancomycin Level Trough 6.5 mcg/mL (10.0-20.0) Vancomycin Last Dose Date 05/30/17 Vancomycin Last Dose Time 1030 Micro BLOOD CULTURE Preliminary NO GROWTH AFTER 2 DAY URINE CULTURE RES 1 Final Comment Culture shows less than 10,000 colony forming units of bacteria per milliliter of urine. This colony count is not generally considered to be clinically significant. Objective Assessment Fever - ? PICC line in place vs Ileus vs abd source etc. influenza screen negative Ileus S/p sigmoidoscopy 05/27 MSSA bacteremia, POA 05/08. Repeat BC NGTD 05/11 on Cefazolin Dementia Seizure disorder Dysphagia s/p PEG placement, 05/14 Plan Plan of Care vanc, Zosyn and po fluconazole Trough 6.5 Blood cults NGTD Supportive care PT SEEN ,EXAMINED ,D/W [employer] CONTINUE SAME SUBLTORIBIO DELANEY APRN May 31, 2017 14:26 WENDIE CINTRON MD May 31, 2017 18:33
[2017-05-31 15:00] VITALS: BP 159/70
--- NOTE | 2017-05-31 17:33 | PDOC ---
PROGRESS NOTES Subjective Subjective non verbal from dementia Objective Objective Vital Signs Date Time Temp Pulse Resp B/P (MAP) Pulse Ox O2 Delivery O2 Flow Rate FiO2 05/31/17 15:00 98.1 78 18 159/70 (99) 98 Room Air 98.1 Intake and Output 05/31/17 07:00 Intake Total 0 ml Output Total 1 ml Balance -1 ml Intake Oral 0 ml Urine/Stool Mix 1 ml # Voids 2 # Bowel Movements 4 Physical Exam Abdomen: Normal bowel sounds, Soft, Other (peg tube present) Heart: Regular rate, Normal S1, Normal S2 Extremities: No edema General: No acute distress HEENT: Atraumatic Lungs: Clear to auscultation MUSCULOSKELETAL: No swelling, Other Neck: No JVD Skin: No rashes COMMENT picc line rt arm Diagnosis Problem List Problems Medical Problems: (1) Hypernatremia Status: Acute (2) Hypokalemia Status: Acute (3) Vancouver's syndrome Status: Acute Assessment Assessment Problems Medical Problems: (1) Hypernatremia Status: Acute (2) Hypokalemia Status: Acute (3) Vancouver's syndrome Status: Acute FINAL IMPRESSION: Fever resolved 1. Abdominal distention due to ileus. 2. Colon distention, ileus versus obstruction. 3. Recent PEG tube placement 10 days ago. 4. Hypokalemia. 5. History of previous strokes. 6. History of seizures. 7. Dementia, Alzheimer's. 8. Failure to thrive. PLAN:tolerating tube feedings at 60 cc /hr ID consult , on 3 antibiotics neg c/s so far taper off antibiotics by tomorrow Low pot 2.7 ,repalce with IV. start on pot 40 meq tid ,peg tube Sigmoidoscopy showed no obstruction ,only ileus.Decompression done/ c/s neg so far, fevers down Problems: Plan Plan of Care Problems Medical Problems: (1) Hypernatremia Status: Acute (2) Hypokalemia Status: Acute (3) Elisa's syndrome Status: Acute Comment Review of Relevant I have reviewed the following items argelia (where applicable) has been applied. Labs Laboratory Tests Test 05/31/17 10:00 White Blood Count 5.8 x10^3/uL (4.0-11.0) Red Blood Count 3.67 x10^6/uL (4.30-5.70) Hemoglobin 9.4 g/dL (13.0-17.5) Hematocrit 29.9 % (39.0-53.0) Mean Corpuscular Volume 81 fL (79-100) Mean Corpuscular Hemoglobin 26 pg (25-35) Mean Corpuscular Hemoglobin Concent 32 g/dL (31-37) Red Cell Distribution Width 18.8 % (11.5-14.5) Platelet Count 164 x10^3/uL (140-400) Neutrophils (%) (Auto) 38 % (31-73) Lymphocytes (%) (Auto) 34 % (24-48) Monocytes (%) (Auto) 15 % (0-9) Eosinophils (%) (Auto) 12 % (0-3) Basophils (%) (Auto) 1 % (0-3) Neutrophils # (Auto) 2.2 x10^3uL (1.8-7.7) Lymphocytes # (Auto) 2.0 x10^3/uL (1.0-4.8) Monocytes # (Auto) 0.9 x10^3/uL (0.0-1.1) Eosinophils # (Auto) 0.7 x10^3/uL (0.0-0.7) Basophils # (Auto) 0.0 x10^3/uL (0.0-0.2) Sodium Level 144 mmol/L (136-145) Potassium Level 3.5 mmol/L (3.5-5.1) Chloride Level 111 mmol/L (98-107) Carbon Dioxide Level 29 mmol/L (21-32) Anion Gap 4 (6-14) Blood Urea Nitrogen 9 mg/dL (8-26) Creatinine 0.7 mg/dL (0.7-1.3) Estimated GFR (Cockcroft-Gault) 128.8 Glucose Level 119 mg/dL (70-99) Calcium Level 7.5 mg/dL (8.5-10.1) Vancomycin Level Trough 6.5 mcg/mL (10.0-20.0) Vancomycin Last Dose Date 05/30/17 Vancomycin Last Dose Time 1030 Microbiology 05/29/17 Blood Culture - Preliminary, Resulted NO GROWTH AFTER 2 DAYS 05/26/17 Urine Culture - Final, Complete 05/26/17 Urine Culture Result 1 (JERZY) - Final, Complete Medications Current Medications Potassium Chloride (KCl Oral Soln) 40 meq TIDWMEALS PEG Last administered on 15:14; Start 05/31/17 at 08:00 Vancomycin HCl 1 each 1X ONCE MC Last administered on 05/31/17 10:00; Start 05/31/17 at 10:00; Stop 05/31/17 at 10:01; Status DC Vancomycin HCl 1 each 1X ONCE MC ; Start 06/01/17 at 23:30; Stop 06/01/17 at 23:31 Vancomycin HCl 1 gm/Dextrose 250 ml @ 250 mls/hr Q12H IV Last administered on 05/31/17 13:00; Start 05/31/17 at 12:00 Vitals/I & O Vital Sign - Last 24 Hours 05/30/17 05/30/17 05/30/17 05/31/17 19:00 20:00 23:00 03:00 Temp 98.1 98.1 98.1 98.1 Pulse 82 76 Resp 18 18 18 B/P (MAP) 154/80 (104) 124/61 (82) Pulse Ox 97 96 O2 Delivery Room Air Room Air Room Air Room Air 05/31/17 05/31/17 05/31/17 05/31/17 07:40 10:02 11:00 15:00 Temp 97.6 97.9 98.1 97.6 97.9 98.1 Pulse 66 66 66 78 Resp 18 18 18 B/P (MAP) 166/76 (106) 166/76 170/76 (107) 159/70 (99) Pulse Ox 98 98 98 O2 Delivery Room Air Room Air Room Air Intake and Output 05/30/17 05/30/17 05/31/17 15:00 23:00 07:00 Intake Total 0 ml Output Total 1 ml Balance -1 ml 0 ml Nutrition Consultation Dietary Evaluation: Comments: TF for total nutrition Expected Outcomes/Goals: to tolerate Tf at goal Malnutrition Findings: Weight Status: Appropriate CHRISTIAN RAMIREZ MD May 31, 2017 17:33
[2017-05-31 19:00] VITALS: BP 151/62
[2017-05-31 23:00] VITALS: BP 115/92
[2017-06-01] MEDS: VANCOMYCIN 1 GM in IV DEXTROSE 5% 250 ML IV SCH ×2
[2017-06-01] MEDS: NORMAL SALINE IV SCH ×2 (00:06→09:18)
[2017-06-01] MEDS: POTASSIUM CHLORIDE IV SCH ×2 (00:06→09:18)
[2017-06-01 03:00] VITALS: BP 112/49
[2017-06-01] MEDS: PIPERACILLIN/TAZO IV Push 3.375 GM VIAL. IVP SCH ×2 (05:40)
[2017-06-01 06:32] LABS: BASO % 1 % (0-3); EOS % 14 % (0-3); HEMATOCRIT 30.7 % (39.0-53.0); HEMOGLOBIN 9.5 g/dL (13.0-17.5); LYMPH # 1.9 x10^3/uL (1.0-4.8); LYMPH % 33 % (24-48); MEAN CORPUSCULAR HEMOGLOBIN 25 pg (25-35); MEAN CORPUSCULAR HGB CONC 31 g/dL (31-37); MEAN CORPUSCULAR VOLUME 82 fL (79-100); MONO % 13 % (0-9); NEUT % 39 % (31-73); PLATELET COUNT 168 x10^3/uL (140-400); RED BLOOD COUNT 3.76 x10^6/uL (4.30-5.70); WHITE BLOOD COUNT 5.7 x10^3/uL (4.0-11.0)
[2017-06-01 06:42] LABS: CREATININE 0.8 mg/dL (0.7-1.3); GFR 110.4; POTASSIUM 3.9 mmol/L (3.5-5.1)
[2017-06-01 07:00] VITALS: BP 166/84
--- NOTE | 2017-06-01 09:11 | PDOC ---
Infectious Disease Note Subjective Subjective Nonverbal No fever last 24 hours Tube feedings ROS ROS no n/v/d/ Vital Sign Vital Signs Vital Signs Date Time Temp Pulse Resp B/P (MAP) Pulse Ox O2 Delivery O2 Flow Rate FiO2 06/01/17 08:11 Room Air 06/01/17 07:00 97.8 60 18 166/84 (111) 97 97.8 Physical Exam PHYSICAL EXAM GENERAL: NAD, Alert HEENT: PERRL, OC/OP NECK: Supple, no JVD, no LN LUNGS: Clear HEART: S1S2, no gallop, no murmur ABD: Soft, NT, no organomegaly, no rebound EXT: No edema, no cyanosis TECHNICAL HEALTHCARE CONSULTANT: Alert, speaks very little off and on SKIN: No rash IV: ok Labs Lab Laboratory Tests Test 05/31/17 10:00 06/01/17 06:00 White Blood Count 5.8 x10^3/uL (4.0-11.0) 5.7 x10^3/uL (4.0-11.0) Red Blood Count 3.67 x10^6/uL (4.30-5.70) 3.76 x10^6/uL (4.30-5.70) Hemoglobin 9.4 g/dL (13.0-17.5) 9.5 g/dL (13.0-17.5) Hematocrit 29.9 % (39.0-53.0) 30.7 % (39.0-53.0) Mean Corpuscular Volume 81 fL (79-100) 82 fL (79-100) Mean Corpuscular Hemoglobin 26 pg (25-35) 25 pg (25-35) Mean Corpuscular Hemoglobin Concent 32 g/dL (31-37) 31 g/dL (31-37) Red Cell Distribution Width 18.8 % (11.5-14.5) 19.0 % (11.5-14.5) Platelet Count 164 x10^3/uL (140-400) 168 x10^3/uL (140-400) Neutrophils (%) (Auto) 38 % (31-73) 39 % (31-73) Lymphocytes (%) (Auto) 34 % (24-48) 33 % (24-48) Monocytes (%) (Auto) 15 % (0-9) 13 % (0-9) Eosinophils (%) (Auto) 12 % (0-3) 14 % (0-3) Basophils (%) (Auto) 1 % (0-3) 1 % (0-3) Neutrophils # (Auto) 2.2 x10^3uL (1.8-7.7) 2.2 x10^3uL (1.8-7.7) Lymphocytes # (Auto) 2.0 x10^3/uL (1.0-4.8) 1.9 x10^3/uL (1.0-4.8) Monocytes # (Auto) 0.9 x10^3/uL (0.0-1.1) 0.8 x10^3/uL (0.0-1.1) Eosinophils # (Auto) 0.7 x10^3/uL (0.0-0.7) 0.8 x10^3/uL (0.0-0.7) Basophils # (Auto) 0.0 x10^3/uL (0.0-0.2) 0.0 x10^3/uL (0.0-0.2) Sodium Level 144 mmol/L (136-145) 140 mmol/L (136-145) Potassium Level 3.5 mmol/L (3.5-5.1) 3.9 mmol/L (3.5-5.1) Chloride Level 111 mmol/L (98-107) 110 mmol/L (98-107) Carbon Dioxide Level 29 mmol/L (21-32) 25 mmol/L (21-32) Anion Gap 4 (6-14) 5 (6-14) Blood Urea Nitrogen 9 mg/dL (8-26) 9 mg/dL (8-26) Creatinine 0.7 mg/dL (0.7-1.3) 0.8 mg/dL (0.7-1.3) Estimated GFR (Cockcroft-Gault) 128.8 110.4 Glucose Level 119 mg/dL (70-99) 130 mg/dL (70-99) Calcium Level 7.5 mg/dL (8.5-10.1) 8.0 mg/dL (8.5-10.1) Vancomycin Level Trough 6.5 mcg/mL (10.0-20.0) Vancomycin Last Dose Date 05/30/17 Vancomycin Last Dose Time 1030 Micro culture neg Objective Assessment Fever - ? PICC line in place vs Ileus vs abd source etc. influenza screen negative Ileus S/p sigmoidoscopy 05/27 MSSA bacteremia, POA 05/08. Repeat BC NGTD 05/11 on Cefazolin Dementia Seizure disorder Dysphagia s/p PEG placement, 05/14 Plan Plan of Care vanc, Zosyn and po fluconazole,,, change back to cefazolin Blood cults NGTD Supportive care DRAKE CINTRON MD Jun 01, 2017 09:11
[2017-06-01] MEDS: LOSARTAN POTASSIUM 25 MG TABLET. PO SCH (09:19)
[2017-06-01] MEDS: POTASSIUM CHLORIDE 20 MEQ/15 ML ORAL LIQUID. PEG SCH ×2 (09:19→12:25)
[2017-06-01] MEDS: LANSOPRAZOLE 30 MG TAB.RAP.DR FT SCH (09:19)
[2017-06-01] MEDS: SPIRONOLACTONE 25 MG TABLET PO SCH (09:19)
--- NOTE | 2017-06-01 10:12 | PDOC ---
PROGRESS NOTES Subjective Subjective no new problems Objective Objective Vital Signs Date Time Temp Pulse Resp B/P (MAP) Pulse Ox O2 Delivery O2 Flow Rate FiO2 06/01/17 09:19 60 166/84 06/01/17 08:11 Room Air 06/01/17 07:00 97.8 18 97 97.8 Intake and Output 06/01/17 07:00 Intake Total 2760 ml Balance 2760 ml IV Total 1380 ml Other 1380 ml # Voids 11 # Bowel Movements 11 Physical Exam Abdomen: Normal bowel sounds, Soft, Other (peg tube present) Heart: Regular rate, Normal S1, Normal S2 Extremities: No edema General: No acute distress HEENT: Atraumatic Lungs: Clear to auscultation MUSCULOSKELETAL: No swelling, Other Neck: No JVD Skin: No rashes COMMENT picc line rt arm Diagnosis Problem List Problems Medical Problems: (1) Hypernatremia Status: Acute (2) Hypokalemia Status: Acute (3) Quinlan's syndrome Status: Acute Assessment Assessment Problems Medical Problems: (1) Hypernatremia Status: Acute (2) Hypokalemia Status: Acute (3) Elisa's syndrome Status: Acute FINAL IMPRESSION: Fever resolved c/s neg 1. Abdominal distention due to ileus. 2. Colon distention, ileus versus obstruction. 3. Recent PEG tube placement 10 days ago. 4. Hypokalemia. 5. History of previous strokes. 6. History of seizures. 7. Dementia, Alzheimer's. 8. Failure to thrive. PLAN: d/c back to NH on Ancef for 3 more weeks iv. tolerating tube feedings at 60 cc /hr taper off antibiotics by tomorrow Low pot 4.0 ,repalce with liquid pot start on pot 20 meq tid ,peg tube Sigmoidoscopy showed no obstruction ,only ileus.Decompression done/ c/s neg so far, fevers down Problems: Plan Plan of Care Problems Medical Problems: (1) Hypernatremia Status: Acute (2) Hypokalemia Status: Acute (3) Quinlan's syndrome Status: Acute Comment Review of Relevant I have reviewed the following items argelia (where applicable) has been applied. Labs Laboratory Tests Test 06/01/17 06:00 White Blood Count 5.7 x10^3/uL (4.0-11.0) Red Blood Count 3.76 x10^6/uL (4.30-5.70) Hemoglobin 9.5 g/dL (13.0-17.5) Hematocrit 30.7 % (39.0-53.0) Mean Corpuscular Volume 82 fL (79-100) Mean Corpuscular Hemoglobin 25 pg (25-35) Mean Corpuscular Hemoglobin Concent 31 g/dL (31-37) Red Cell Distribution Width 19.0 % (11.5-14.5) Platelet Count 168 x10^3/uL (140-400) Neutrophils (%) (Auto) 39 % (31-73) Lymphocytes (%) (Auto) 33 % (24-48) Monocytes (%) (Auto) 13 % (0-9) Eosinophils (%) (Auto) 14 % (0-3) Basophils (%) (Auto) 1 % (0-3) Neutrophils # (Auto) 2.2 x10^3uL (1.8-7.7) Lymphocytes # (Auto) 1.9 x10^3/uL (1.0-4.8) Monocytes # (Auto) 0.8 x10^3/uL (0.0-1.1) Eosinophils # (Auto) 0.8 x10^3/uL (0.0-0.7) Basophils # (Auto) 0.0 x10^3/uL (0.0-0.2) Sodium Level 140 mmol/L (136-145) Potassium Level 3.9 mmol/L (3.5-5.1) Chloride Level 110 mmol/L (98-107) Carbon Dioxide Level 25 mmol/L (21-32) Anion Gap 5 (6-14) Blood Urea Nitrogen 9 mg/dL (8-26) Creatinine 0.8 mg/dL (0.7-1.3) Estimated GFR (Cockcroft-Gault) 110.4 Glucose Level 130 mg/dL (70-99) Calcium Level 8.0 mg/dL (8.5-10.1) Microbiology 05/29/17 Blood Culture - Preliminary, Resulted NO GROWTH AFTER 2 DAYS 05/26/17 Urine Culture - Final, Complete 05/26/17 Urine Culture Result 1 (JERZY) - Final, Complete Medications Current Medications Cefazolin Sodium (Ancef) 1 gm Q8HRS IVP ; Start 06/01/17 at 14:00 Cefazolin Sodium 1 gm/Dextrose 50 ml @ 100 mls/hr Q8HRS IV ; Start 06/01/17 at 14:00; Status UNV Vancomycin HCl 1 each 1X ONCE MC ; Start 06/01/17 at 23:30; Stop 06/01/17 at 23:30; Status DC Vancomycin HCl 1 gm/Dextrose 250 ml @ 250 mls/hr Q12H IV Last administered on 06/01/17t 00:00; Start 05/31/17 at 12:00; Stop 06/01/17 at 09:12; Status DC Vitals/I & O Vital Sign - Last 24 Hours 05/31/17 05/31/17 05/31/17 05/31/17 11:00 15:00 19:00 19:20 Temp 97.9 98.1 97.5 97.9 98.1 97.5 Pulse 66 78 66 Resp 18 18 18 B/P (MAP) 170/76 (107) 159/70 (99) 151/62 (91) Pulse Ox 98 98 97 O2 Delivery Room Air Room Air Room Air Room Air 05/31/17 06/01/17 06/01/17 06/01/17 23:00 03:00 07:00 08:11 Temp 97.7 97.9 97.8 97.7 97.9 97.8 Pulse 61 60 60 Resp 18 18 18 B/P (MAP) 115/92 (100) 112/49 (70) 166/84 (111) Pulse Ox 98 93 97 O2 Delivery Room Air Room Air Room Air Room Air 06/01/17 09:19 Pulse 60 B/P (MAP) 166/84 Intake and Output 05/31/17 05/31/17 06/01/17 15:00 23:00 07:00 Intake Total 2760 ml Balance 2760 ml Nutrition Consultation Dietary Evaluation: Comments: TF for total nutrition Expected Outcomes/Goals: to tolerate Tf at goal Malnutrition Findings: Weight Status: Appropriate CHRISTIAN RAMIREZ MD Jun 01, 2017 10:12
--- NOTE | 2017-06-01 10:18 | PDOC ---
Objective: Objective: Note DC orders. 11 stools charted. Clarified w/ RN - has "smears" and "oozing" of small amounts of stool. Vital Signs: Vital Signs Date Time Temp Pulse Resp B/P (MAP) Pulse Ox O2 Delivery O2 Flow Rate FiO2 06/01/17 09:19 60 166/84 06/01/17 08:11 Room Air 06/01/17 07:00 97.8 18 97 97.8 Labs: Laboratory Tests Test 06/01/17 06:00 White Blood Count 5.7 x10^3/uL Red Blood Count 3.76 x10^6/uL Hemoglobin 9.5 g/dL Hematocrit 30.7 % Mean Corpuscular Volume 82 fL Mean Corpuscular Hemoglobin 25 pg Mean Corpuscular Hemoglobin Concent 31 g/dL Red Cell Distribution Width 19.0 % Platelet Count 168 x10^3/uL Neutrophils (%) (Auto) 39 % Lymphocytes (%) (Auto) 33 % Monocytes (%) (Auto) 13 % Eosinophils (%) (Auto) 14 % Basophils (%) (Auto) 1 % Neutrophils # (Auto) 2.2 x10^3uL Lymphocytes # (Auto) 1.9 x10^3/uL Monocytes # (Auto) 0.8 x10^3/uL Eosinophils # (Auto) 0.8 x10^3/uL Basophils # (Auto) 0.0 x10^3/uL Sodium Level 140 mmol/L Potassium Level 3.9 mmol/L Chloride Level 110 mmol/L Carbon Dioxide Level 25 mmol/L Anion Gap 5 Blood Urea Nitrogen 9 mg/dL Creatinine 0.8 mg/dL Estimated GFR (Cockcroft-Gault) 110.4 Glucose Level 130 mg/dL Calcium Level 8.0 mg/dL PE: GEN: NAD LUNGS: clear HEART: RRR ABD: soft, BS+, non-tender, PEG in place NEURO/PSYCH: awake, non-verbal A/P: Colonic ileus s/p flex sig, now stooling PEG in place Fever, bacteremia -atbx per ID -- DC per primary, ?check C Diff JONAS PATEL Jun 01, 2017 10:18
[2017-06-01 11:00] VITALS: BP 157/73
[2017-06-01] MEDS ORDERED: ceFAZolin SODIUM IV Push 1 GM VIAL. IVP SCH (14:00)
[2017-06-01] MEDS ORDERED: ceFAZolin SODIUM 1 GM in IV DEXTROSE 5% 50 ML IV SCH (14:00)
--- NOTE | 2017-06-03 10:03 | PDOC ---
Provider Note Provider Note Discharge summary dictated. #[id number] CHRISTIAN RAMIREZ MD Jun 03, 2017 10:03
--- NOTE | 2017-06-03 10:42 | DS ---
DATE OF DISCHARGE: 06/01/2017 REASON FOR ADMISSION TO THE HOSPITAL: Abdominal distension and colon dilatation. CONSULTATIONS: Sesar. PROCEDURES DONE: 1. CT scan of abdomen and pelvis. 2. Flexible sigmoidoscopy. HOSPITAL COURSE: The patient is an 87-year-old male with history of dementia, Parkinson disease, who also had an inability to swallow, had a PEG tube placed a couple of weeks ago, [facility]. He also had hyponatremia, which was corrected. The patient was found to have abdominal distention, was sent to the hospital. X-ray shows colon dilatation. CT scan shows colon dilatation. The patient had a flexible sigmoidoscopy and decompression of the colon dilatation was done and the patient was improving. The patient had a fever, was seen by Infectious Disease. The patient had a history of a staph infection, bacteremia, while he was in the last admission, he was supposed to finish a total of 6 weeks of Ancef, was followed by Infectious Disease in the hospital, had covered with broad spectrum antibiotics. All the cultures came back negative, so the patient was continued on Ancef to finish another 2 more weeks to complete 6 weeks of Ancef. FINAL DIAGNOSES: 1. Abdominal distention secondary to colon ileus, decompression was done. 2. Fevers. Culture was negative. 3. Recent staph bacteremia, needed 2 more weeks of Ancef. 4. The patient has a chronic PICC line for antibiotics. 5. Dementia with Alzheimer's. 6. History of previous strokes. 7. History of seizures, stable. DISPOSITION: The patient was [facility] the [facility] and continue tube feedings, monitor electrolytes periodically as well as 2 more weeks of antibiotics and discontinue PICC line after that. CHRISTIAN RAMIREZ MD DR: MONTRELL/royce JOB#: [id number] / [id number]
[2017-07-05] MEDS ORDERED: HYDR-2867 PEG (15:38)
[2017-07-05] MEDS ORDERED: SPIR25TA3 PEG (15:38)
== END 2017-06-01 16:15 | disposition home or self-care (01) | DRG 388 ==
LOC: ER 13:36 → 4 NORTH 20:43
PROVIDERS: ADMIT Internal Medicine; ATTEND Internal Medicine
PROC: 0D7E8ZZ Dilation of Large Intestine, Via Natural or Artificial Opening Endoscopic (ICD-10-PCS; principal; 2017-05-27 10:30)
DX: K56.7 Ileus, unspecified (principal); E43 Unspecified severe protein-calorie malnutrition; E87.0 Hyperosmolality and hypernatremia; Z93.1 Gastrostomy status; D64.9 Anemia, unspecified; E86.0 Dehydration; G30.9 Alzheimer's disease, unspecified; F02.80 Dementia in other diseases classified elsewhere, unspecified severity, without behavioral disturbance, psychotic disturbance, mood disturbance, and anxiety; Z68.1 Body mass index [BMI] 19.9 or less, adult; R78.81 Bacteremia; R13.10 Dysphagia, unspecified; G40.909 Epilepsy, unspecified, not intractable, without status epilepticus; E78.00 Pure hypercholesterolemia, unspecified; F41.9 Anxiety disorder, unspecified; E55.9 Vitamin D deficiency, unspecified; F29 Unspecified psychosis not due to a substance or known physiological condition; R32 Unspecified urinary incontinence; E87.6 Hypokalemia; R62.7 Adult failure to thrive; K21.9 Gastro-esophageal reflux disease without esophagitis; I73.9 Peripheral vascular disease, unspecified; I25.10 Atherosclerotic heart disease of native coronary artery without angina pectoris; I12.9 Hypertensive chronic kidney disease with stage 1 through stage 4 chronic kidney disease, or unspecified chronic kidney disease; N18.9 Chronic kidney disease, unspecified; F32.9 Major depressive disorder, single episode, unspecified; E78.5 Hyperlipidemia, unspecified; E03.9 Hypothyroidism, unspecified; I69.320 Aphasia following cerebral infarction; Z86.19 Personal history of other infectious and parasitic diseases; Z98.49 Cataract extraction status, unspecified eye
CPT/HCPCS: 36415; 71010; 74000; 74177; 80048; 80053; 80202; 81001; 83690; 85007; 85025; 85610; 87040; 87086; 87641; 87804; J0690; J1450; J2543; J2704; J3370; J3480; J7030; Q9967; 99285-25